=== PATIENT | female | born 2005 | race African-American/Black ===

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

== ENCOUNTER 2024-01-21 15:48 | Emergency (ER) | payer OTHER, BC ==
[~2024-01-21 15:48] MED LIST: LORazepam 2 MG/ML SDV ONE
[2024-01-21] MEDS ORDERED: LORazepam 2 MG/ML SDV IVPUSH PRN (15:51)
[2024-01-21] MEDS: Sodium Chloride 0.9% 1,000 ML IV ONE (15:56)
[2024-01-21] MEDS ORDERED: Sodium Chloride 0.9% 10 ML Syringe FLUSH PRN (15:57)
[2024-01-21 16:04] LABS: BASOPHILS ABSOLUTE AUTO 0.03 K/uL (0.00-0.30); BASOPHILS PERCENT AUTO 0.3 % (0.0-1.0); EOSINOPHILS ABSOLUTE AUTO 0.08 K/uL (0.00-0.70); EOSINOPHILS PERCENT AUTO 0.8 % (0.0-5.0); HEMATOCRIT 42.2 % (37.0-47.0); HEMOGLOBIN 14.2 g/dL (12.0-16.0); IMMATURE GRAN ABSOLUTE AUTO 0.03 K/uL (0.00-0.05); IMMATURE GRAN PERCENT AUTO 0.3 % (0.0-0.4); LYMPHOCYTES ABSOLUTE AUTO 1.85 K/uL (2.00-8.80); LYMPHOCYTES PERCENT AUTO 17.9 % (50.0-65.0); MEAN CORPUSCULAR HEMOGLOBIN 30.7 pg (28.0-32.0); MEAN CORPUSCULAR HGB CONC 33.6 g/dL (32.0-36.0); MEAN CORPUSCULAR VOLUME 91.1 fL (83.0-99.0); MONOCYTES ABSOLUTE AUTO 0.69 K/uL (0.10-1.40); MONOCYTES PERCENT AUTO 6.7 % (2.0-10.0); NEUTROPHILS ABSOLUTE AUTO 7.65 K/uL (1.50-8.50); PLATELET COUNT,PLT 305 K/uL (150-400); RED BLOOD CELL COUNT 4.63 M/uL (4.10-5.30); WHITE BLOOD CELL COUNT,WBC 10.33 K/uL (4.5-13.5)
[2024-01-21 16:31] LABS: INR 0.99 (0.86-1.11)
[2024-01-21 16:35] LABS: ALBUMIN 3.6 g/dL (3.4-5.0); BILIRUBIN TOTAL 0.2 mg/dL (0.2-1.0); CALCIUM 8.9 mg/dL (8.5-10.1); CARBON DIOXIDE,CO2 19.3 mmol/L (21.0-32.0); CREATININE 1.4 mg/dL (0.6-1.0); EST CRCL DRUG DOSING (CG) 58.16 mL/min; MAGNESIUM 1.5 mg/dL (1.8-2.4); POTASSIUM,K 3.5 mmol/L (3.5-5.1); PROTEIN TOTAL,TP 7.1 g/dL (6.4-8.2)
[2024-01-21] MEDS: Magnesium Sulfate/Water Premix 2 GM in Premix Bag 1 BAG IV ONE (16:59)
[2024-01-21 17:16] LABS: APPEARANCE,URINE CLOUDY; BILIRUBIN,URINE NEGATIVE (NEGATIVE); GLUCOSE,URINE NEGATIVE (NEGATIVE); KETONES,URINE NEGATIVE (NEGATIVE); LEUKOCYTE ESTERASE,URINE NEGATIVE (NEGATIVE); NITRITE,URINE NEGATIVE (NEGATIVE); OCCULT BLOOD,URINE LARGE (NEGATIVE); PROTEIN,URINE TRACE mg/dL (NEGATIVE); UROBILINOGEN,URINE 0.2 EU/dL (<2.0)
[2024-01-21 17:25] LABS: AMPHETAMINES SCREEN, URINE NEGATIVE (CUTOFF=500); BARBITURATE SCREEN,URINE NEGATIVE (CUTOFF=200); BENZODIAZEPINES SCREEN,URINE NEGATIVE (CUTOFF=150); BUPRENORPHINE SCREEN,URINE NEGATIVE (CUTOFF=10); METHADONE SCREEN, URINE NEGATIVE (CUTOFF=200); METHAMPHETAMINES SCREEN, URINE NEGATIVE (CUTOFF=500); OXYCODONE SCREEN,URINE NEGATIVE (CUT0FF=100); PCP SCREEN,URINE NEGATIVE (CUTOFF=25); THC SCREEN,URINE 20 NG/ML NEGATIVE (CUTOFF=50)
[2024-01-21 17:26] LABS: COLOR,URINE PINK
[2024-01-21 17:27] LABS: BACTERIA,URINE FEW (NEGATIVE); EPITHELIAL CELLS,URINE RARE (NONE-FEW); MUCUS,URINE LIGHT (NONE-MOD); RBC,URINE 50-75 (0-2/HPF); WBC,URINE 0-2 (0-5/HPF)
[2024-01-21] MEDS ORDERED: Furosemide 40 MG/4 ML VIAL IVPUSH ONE (17:45)
== END 2024-01-21 19:39 | disposition home or self-care (01) ==
LOC: MW.ED 15:48
DX: G40.409 Other generalized epilepsy and epileptic syndromes, not intractable, without status epilepticus (principal); S06.9X9A Unspecified intracranial injury with loss of consciousness of unspecified duration, initial encounter; E83.42 Hypomagnesemia; R79.89 Other specified abnormal findings of blood chemistry; Z79.899 Other long term (current) drug therapy; X58.XXXA Exposure to other specified factors, initial encounter
CPT/HCPCS: 36415; 70450; 80053; 80305; 81001; 83690; 83735; 84703; 85025; 85610; 93005; 96365; 96366; 96367; 99285; J1953; J2060; J3475; J7030; J7060; 93010; 99284

== ENCOUNTER 2024-02-08 08:53 | Emergency (ER) | payer BC, OTHER ==
[2024-02-08 09:06] LABS: BASOPHILS ABSOLUTE AUTO 0.03 K/uL (0.00-0.30); BASOPHILS PERCENT AUTO 0.4 % (0.0-1.0); EOSINOPHILS ABSOLUTE AUTO 0.12 K/uL (0.00-0.70); EOSINOPHILS PERCENT AUTO 1.5 % (0.0-5.0); HEMOGLOBIN 14.4 g/dL (12.0-16.0); IMMATURE GRAN ABSOLUTE AUTO 0.02 K/uL (0.00-0.05); IMMATURE GRAN PERCENT AUTO 0.2 % (0.0-0.4); LYMPHOCYTES ABSOLUTE AUTO 2.37 K/uL (2.00-8.80); LYMPHOCYTES PERCENT AUTO 28.8 % (50.0-65.0); MEAN CORPUSCULAR HEMOGLOBIN 30.9 pg (28.0-32.0); MEAN CORPUSCULAR HGB CONC 34.3 g/dL (32.0-36.0); MEAN CORPUSCULAR VOLUME 90.1 fL (83.0-99.0); MEAN PLATELET VOLUME 8.9 fL (9.4-12.3); MONOCYTES ABSOLUTE AUTO 0.71 K/uL (0.10-1.40); MONOCYTES PERCENT AUTO 8.6 % (2.0-10.0); NEUTROPHILS ABSOLUTE AUTO 4.99 K/uL (1.50-8.50); NEUTROPHILS PERCENT AUTO 60.5 % (35.0-45.0); PLATELET COUNT,PLT 293 K/uL (150-400); RED BLOOD CELL COUNT 4.66 M/uL (4.10-5.30); WHITE BLOOD CELL COUNT,WBC 8.24 K/uL (4.5-13.5)
[2024-02-08 09:32] LABS: A/G RATIO 1.1 (0.9-1.6); ALBUMIN 3.5 g/dL (3.4-5.0); BILIRUBIN TOTAL 0.4 mg/dL (0.2-1.0); CALCIUM 8.9 mg/dL (8.5-10.1); CARBON DIOXIDE,CO2 19.8 mmol/L (21.0-32.0); CREATININE 1.2 mg/dL (0.6-1.0); EST CRCL DRUG DOSING (CG) 67.85 mL/min; MAGNESIUM 1.5 mg/dL (1.8-2.4); POTASSIUM,K 3.7 mmol/L (3.5-5.1); PROTEIN TOTAL,TP 6.8 g/dL (6.4-8.2)
[2024-02-08] MEDS ORDERED: Magnesium Sulfate (4.06 MEQ/ML) 5 GM/10 ML SDV IV STA (10:03)
[2024-02-08] MEDS: Magnesium Sulfate/Water Premix 2 GM in Premix Bag 1 BAG IV ONE (10:15)
[2024-02-11 05:07] LABS: KEPPRA 49 ug/mL (10-40); TOPIRAMATE 8.3 ug/mL (5.0-20.0)
== END 2024-02-08 14:18 | disposition home or self-care (01) ==
LOC: MW.ED 08:53
DX: G40.909 Epilepsy, unspecified, not intractable, without status epilepticus (principal); Z79.899 Other long term (current) drug therapy
CPT/HCPCS: 36415; 80053; 80177; 80201; 82947; 83735; 85025; 93005; 96365; 99285; J3475

== ENCOUNTER 2024-03-02 10:22 | Emergency (ER) | payer BC ==
[2024-03-02] MEDS: Sodium Chloride 0.9% 1,000 ML IV ONE (11:02)
[2024-03-02 11:10] LABS: BASOPHILS ABSOLUTE AUTO 0.03 K/uL (0.00-0.30); BASOPHILS PERCENT AUTO 0.3 % (0.0-1.0); EOSINOPHILS ABSOLUTE AUTO 0.05 K/uL (0.00-0.70); EOSINOPHILS PERCENT AUTO 0.5 % (0.0-5.0); IMMATURE GRAN ABSOLUTE AUTO 0.03 K/uL (0.00-0.05); IMMATURE GRAN PERCENT AUTO 0.3 % (0.0-0.4); LYMPHOCYTES ABSOLUTE AUTO 1.07 K/uL (2.00-8.80); LYMPHOCYTES PERCENT AUTO 10.1 % (50.0-65.0); MEAN CORPUSCULAR HEMOGLOBIN 30.9 pg (28.0-32.0); MEAN CORPUSCULAR HGB CONC 34.1 g/dL (32.0-36.0); MEAN CORPUSCULAR VOLUME 90.5 fL (83.0-99.0); MEAN PLATELET VOLUME 8.6 fL (9.4-12.3); MONOCYTES PERCENT AUTO 5.7 % (2.0-10.0); NEUTROPHILS ABSOLUTE AUTO 8.81 K/uL (1.50-8.50); NEUTROPHILS PERCENT AUTO 83.1 % (35.0-45.0); PLATELET COUNT,PLT 317 K/uL (150-400); RED BLOOD CELL COUNT 4.53 M/uL (4.10-5.30); WHITE BLOOD CELL COUNT,WBC 10.59 K/uL (4.5-13.5)
[2024-03-02 12:05] LABS: ALANINE AMINOTRANSFERASE,ALT 15 IU/L (14-63); ALBUMIN 3.3 g/dL (3.4-5.0); ALKALINE PHOSPHATASE 61 U/L (46-116); ASPARTATE AMNIOTRANSFERASE,AST 12 IU/L (15-37); BILIRUBIN TOTAL 0.2 mg/dL (0.2-1.0); BLOOD UREA NITROGEN,BUN 7 mg/dL (7.0-18.0); CALCIUM 9.2 mg/dL (8.5-10.1); CHLORIDE,CL 109 mmol/L (98-107); CREATININE 1.2 mg/dL (0.6-1.0); GLUCOSE RANDOM 89 mg/dL (74-106); MAGNESIUM 1.6 mg/dL (1.8-2.4); POTASSIUM,K 3.8 mmol/L (3.5-5.1); PROTEIN TOTAL,TP 6.7 g/dL (6.4-8.2); SODIUM,NA 143 mmol/L (136-145)
[2024-03-02 12:12] LABS: ESTIMATED GFR 67 mL/min (>60)
[2024-03-02] MEDS: Magnesium Oxide 400 MG Tab PO ONE (14:33)
== END 2024-03-02 14:43 | disposition home or self-care (01) ==
LOC: MW.ED 10:22
DX: G40.909 Epilepsy, unspecified, not intractable, without status epilepticus (principal); Z79.899 Other long term (current) drug therapy; Z75.8 Other problems related to medical facilities and other health care
CPT/HCPCS: 36415; 70450; 80053; 83735; 85025; 93005; 96361; 96365; 99284; A9270; J1953; J7030; J7060; 93010; 99285

== ENCOUNTER 2024-06-02 10:38 | Emergency (ER) | payer BC ==
[2024-06-02] MEDS ORDERED: Sodium Chloride 0.9% 10 ML Syringe FLUSH PRN (10:43)
[2024-06-02 11:05] LABS: BASOPHILS ABSOLUTE AUTO 0.02 K/uL (0.00-0.30); BASOPHILS PERCENT AUTO 0.2 % (0.0-1.0); EOSINOPHILS ABSOLUTE AUTO 0.04 K/uL (0.00-0.70); EOSINOPHILS PERCENT AUTO 0.4 % (0.0-5.0); HEMATOCRIT 38.6 % (37.0-47.0); HEMOGLOBIN 13.1 g/dL (12.0-16.0); IMMATURE GRAN ABSOLUTE AUTO 0.02 K/uL (0.00-0.05); IMMATURE GRAN PERCENT AUTO 0.2 % (0.0-0.4); LYMPHOCYTES ABSOLUTE AUTO 1.62 K/uL (2.00-8.80); LYMPHOCYTES PERCENT AUTO 17.1 % (50.0-65.0); MEAN CORPUSCULAR HEMOGLOBIN 30.6 pg (28.0-32.0); MEAN CORPUSCULAR HGB CONC 33.9 g/dL (32.0-36.0); MEAN CORPUSCULAR VOLUME 90.2 fL (83.0-99.0); MEAN PLATELET VOLUME 8.9 fL (9.4-12.3); MONOCYTES ABSOLUTE AUTO 0.62 K/uL (0.10-1.40); MONOCYTES PERCENT AUTO 6.6 % (2.0-10.0); NEUTROPHILS ABSOLUTE AUTO 7.13 K/uL (1.50-8.50); NEUTROPHILS PERCENT AUTO 75.5 % (35.0-45.0); PLATELET COUNT,PLT 245 K/uL (150-400); RED BLOOD CELL COUNT 4.28 M/uL (4.10-5.30); WHITE BLOOD CELL COUNT,WBC 9.45 K/uL (4.5-13.5)
[2024-06-02 11:26] LABS: A/G RATIO 1.1 (0.9-1.6); ALBUMIN 3.4 g/dL (3.4-5.0); BILIRUBIN TOTAL 0.3 mg/dL (0.2-1.0); CALCIUM 8.7 mg/dL (8.5-10.1); CARBON DIOXIDE,CO2 19.4 mmol/L (21.0-32.0); CREATININE 1.1 mg/dL (0.6-1.0); EST CRCL DRUG DOSING (CG) 71.03 mL/min; MAGNESIUM 1.8 mg/dL (1.8-2.4); POTASSIUM,K 3.5 mmol/L (3.5-5.1); PROTEIN TOTAL,TP 6.6 g/dL (6.4-8.2)
[2024-06-02] MEDS: LORazepam 2 MG/ML SDV IVPUSH ONE ×5 (13:18→16:43)
[2024-06-02] MEDS: Sodium Chloride 0.9% 1,000 ML IV ONE (13:19)
[2024-06-02] MEDS: propofoL 1,000 MG/100 ML 100 ML IV SCH (14:40)
[2024-06-02 15:16] LABS: APPEARANCE,URINE CLEAR; BILIRUBIN,URINE NEGATIVE (NEGATIVE); COLOR,URINE YELLOW; GLUCOSE,URINE NEGATIVE (NEGATIVE); KETONES,URINE NEGATIVE (NEGATIVE); LEUKOCYTE ESTERASE,URINE NEGATIVE (NEGATIVE); NITRITE,URINE NEGATIVE (NEGATIVE); OCCULT BLOOD,URINE NEGATIVE (NEGATIVE); PROTEIN,URINE NEGATIVE (NEGATIVE); UROBILINOGEN,URINE 0.2 EU/dL (<2.0)
[2024-06-02] MEDS: Propofol 200 MG/20 ML SDV IVPUSH ONE ×3 (15:20→17:11)
[2024-06-02 15:32] LABS: BICARBONATE,ARTERIAL 17 mEq/L (22-26); PCO2 ARTERIAL 38 mmHG (35-45); PO2 ARTERIAL 210 mmHG (80-105)
[2024-06-02] MEDS: Succinylcholine 200 MG/10 ML MDV IV ONE (15:37)
[2024-06-02] MEDS: Etomidate 2 MG/ML 20 ML SDV IVPUSH ONE (15:37)
[2024-06-02] MEDS: fentaNYL/Normal Saline 2,500 MCG in Premix Bag 1 BAG IV PRN (15:42)
[2024-06-02] MEDS: Lactated Ringers 1,000 ML IV SCH (16:42)
[2024-06-02] MEDS: LORazepam 2 MG/ML SDV ONE ×3 (16:44)
[2024-06-02 16:50] LABS: AMPHETAMINES SCREEN, URINE NEGATIVE (CUTOFF=500); BARBITURATE SCREEN,URINE NEGATIVE (CUTOFF=200); BENZODIAZEPINES SCREEN,URINE PRESUMPTIVE POSITIVE (CUTOFF=150); BUPRENORPHINE SCREEN,URINE NEGATIVE (CUTOFF=10); METHADONE SCREEN, URINE NEGATIVE (CUTOFF=200); METHAMPHETAMINES SCREEN, URINE NEGATIVE (CUTOFF=500); OXYCODONE SCREEN,URINE NEGATIVE (CUT0FF=100); PCP SCREEN,URINE NEGATIVE (CUTOFF=25); THC SCREEN,URINE 20 NG/ML NEGATIVE (CUTOFF=50)
[2024-06-02 17:10] LABS: PH,VENOUS 7.27 (7.31-7.41)
[2024-06-02] MEDS: propofoL 1,000 MG/100 ML 100 ML ONE (17:13)
[2024-06-02] MEDS ORDERED: propofoL 1,000 MG/100 ML 100 ML IV SCH (18:20)
[2024-06-05 05:07] LABS: KEPPRA 39 ug/mL (10-40)
== END 2024-06-02 18:18 ==
LOC: MW.ED 10:38
DX: G40.901 Epilepsy, unspecified, not intractable, with status epilepticus (principal); E87.20 Acidosis, unspecified; E87.29 Other acidosis; Z79.899 Other long term (current) drug therapy
CPT/HCPCS: 31500; 36415; 36600; 51702; 70450; 71045; 80053; 80177; 80305; 81003; 81025; 82803; 83605; 83690; 83735; 85025; 93005; 96361; 96365; 96366; 96375; 96376; 99291; 99292; J0330; J1953; J2060; J2704; J3490; J7030; J7120; 93010

== ENCOUNTER 2024-07-26 12:04 | Emergency (ER) | payer BC ==
[2024-07-26] MEDS: Sodium Chloride 0.9% 1,000 ML IV ONE ×2 (12:44→15:00)
[2024-07-26] MEDS ORDERED: LORazepam 2 MG/ML SDV IVPUSH PRN (13:09)
[2024-07-26] MEDS: LORazepam 2 MG/ML SDV IM ONE (13:15)
[2024-07-26] MEDS: Midazolam 5 MG/ML SDV IM ONE (13:18)
[2024-07-26] MEDS: droPERidol 2.5 MG/ML SDV IM ONE (13:28)
[2024-07-26 14:29] LABS: BASOPHILS ABSOLUTE AUTO 0.02 K/uL (0.00-0.30); BASOPHILS PERCENT AUTO 0.2 % (0.0-1.0); EOSINOPHILS ABSOLUTE AUTO 0.06 K/uL (0.00-0.70); EOSINOPHILS PERCENT AUTO 0.7 % (0.0-5.0); HEMATOCRIT 38.8 % (37.0-47.0); HEMOGLOBIN 13.1 g/dL (12.0-16.0); IMMATURE GRAN ABSOLUTE AUTO 0.02 K/uL (0.00-0.05); IMMATURE GRAN PERCENT AUTO 0.2 % (0.0-0.4); LYMPHOCYTES ABSOLUTE AUTO 1.77 K/uL (2.00-8.80); LYMPHOCYTES PERCENT AUTO 19.2 % (50.0-65.0); MEAN CORPUSCULAR HEMOGLOBIN 30.5 pg (28.0-32.0); MEAN CORPUSCULAR HGB CONC 33.8 g/dL (32.0-36.0); MEAN CORPUSCULAR VOLUME 90.4 fL (83.0-99.0); MEAN PLATELET VOLUME 8.9 fL (9.4-12.3); MONOCYTES ABSOLUTE AUTO 0.59 K/uL (0.10-1.40); MONOCYTES PERCENT AUTO 6.4 % (2.0-10.0); NEUTROPHILS ABSOLUTE AUTO 6.74 K/uL (1.50-8.50); NEUTROPHILS PERCENT AUTO 73.3 % (35.0-45.0); PLATELET COUNT,PLT 300 K/uL (150-400); RED BLOOD CELL COUNT 4.29 M/uL (4.10-5.30)
[2024-07-26] MEDS: LORazepam 2 MG/ML SDV ONE (14:44)
[2024-07-26 14:50] LABS: BASE EXCESS VENOUS -2.3 (-2.0-3.0); PH,VENOUS 7.38 (7.32-7.43)
[2024-07-26 15:09] LABS: A/G RATIO 1.1 (0.9-1.6); ALANINE AMINOTRANSFERASE,ALT 9 IU/L (14-63); ALBUMIN 3.3 g/dL (3.4-5.0); ALKALINE PHOSPHATASE 61 U/L (46-116); ASPARTATE AMNIOTRANSFERASE,AST 8 IU/L (15-37); BILIRUBIN TOTAL 0.4 mg/dL (0.2-1.0); BLOOD UREA NITROGEN,BUN 10 mg/dL (7.0-18.0); CALCIUM 8.6 mg/dL (8.5-10.1); CARBON DIOXIDE,CO2 20.6 mmol/L (21.0-32.0); CHLORIDE,CL 110 mmol/L (98-107); GLUCOSE RANDOM 90 mg/dL (74-106); MAGNESIUM 1.8 mg/dL (1.8-2.4); POTASSIUM,K 3.6 mmol/L (3.5-5.1); PROTEIN TOTAL,TP 6.3 g/dL (6.4-8.2); SODIUM,NA 142 mmol/L (136-145)
[2024-07-26 15:11] LABS: ESTIMATED GFR 83 mL/min (>60)
[2024-07-26] MEDS: Sodium Chloride 0.9% 1,000 ML IV SCH (17:52)
[2024-07-26] MEDS ORDERED: Topiramate 100 MG Tab PO SCH (21:00)
== END 2024-07-26 21:01 | disposition home or self-care (01) ==
LOC: MW.ED 12:04
DX: G40.909 Epilepsy, unspecified, not intractable, without status epilepticus (principal); Z79.899 Other long term (current) drug therapy
CPT/HCPCS: 36415; 80053; 82803; 83605; 83735; 84703; 85025; 96372; 96374; 99284; J1790; J1953; J2060; J2250; J7030; 93010

== ENCOUNTER 2024-08-07 13:34 | Emergency (ER) | payer BC ==
[2024-08-07] MEDS: droPERidol 2.5 MG/ML SDV IVPUSH ONE (13:52)
[2024-08-07] MEDS: Sodium Chloride 0.9% 1,000 ML IV ONE (14:02)
[2024-08-07 14:17] LABS: BASOPHILS ABSOLUTE AUTO 0.03 K/uL (0.00-0.30); BASOPHILS PERCENT AUTO 0.4 % (0.0-1.0); EOSINOPHILS ABSOLUTE AUTO 0.06 K/uL (0.00-0.70); EOSINOPHILS PERCENT AUTO 0.7 % (0.0-5.0); HEMATOCRIT 38.5 % (37.0-47.0); IMMATURE GRAN ABSOLUTE AUTO 0.01 K/uL (0.00-0.05); IMMATURE GRAN PERCENT AUTO 0.1 % (0.0-0.4); LYMPHOCYTES ABSOLUTE AUTO 2.04 K/uL (2.00-8.80); LYMPHOCYTES PERCENT AUTO 24.1 % (50.0-65.0); MEAN CORPUSCULAR HEMOGLOBIN 30.8 pg (28.0-32.0); MEAN CORPUSCULAR HGB CONC 33.8 g/dL (32.0-36.0); MEAN CORPUSCULAR VOLUME 91.2 fL (83.0-99.0); MEAN PLATELET VOLUME 9.1 fL (9.4-12.3); MONOCYTES ABSOLUTE AUTO 0.62 K/uL (0.10-1.40); MONOCYTES PERCENT AUTO 7.3 % (2.0-10.0); NEUTROPHILS PERCENT AUTO 67.4 % (35.0-45.0); PLATELET COUNT,PLT 278 K/uL (150-400); RED BLOOD CELL COUNT 4.22 M/uL (4.10-5.30); WHITE BLOOD CELL COUNT,WBC 8.46 K/uL (4.5-13.5)
[2024-08-08 02:27] LABS: ALANINE AMINOTRANSFERASE,ALT 15 IU/L (14-63); ALKALINE PHOSPHATASE 55 U/L (46-116); ASPARTATE AMNIOTRANSFERASE,AST 23 IU/L (15-37); BILIRUBIN TOTAL 0.4 mg/dL (0.2-1.0); BLOOD UREA NITROGEN,BUN 9 mg/dL (7.0-18.0); CALCIUM 8.9 mg/dL (8.5-10.1); CARBON DIOXIDE,CO2 11.3 mmol/L (21.0-32.0); CHLORIDE,CL 107 mmol/L (98-107); CREATINE KINASE,CK 78 U/L (26-308); CREATININE 1.1 mg/dL (0.6-1.0); ETHANOL BLOOD MEDICAL <3 mg/dL; GLUCOSE RANDOM 94 mg/dL (74-106); POTASSIUM,K 3.8 mmol/L (3.5-5.1); PROTEIN TOTAL,TP 6.6 g/dL (6.4-8.2); SALICYLATE 0.3 mg/dL (0.0-20.0); SODIUM,NA 138 mmol/L (136-145); TSH ULTRASENSITIVE 1.28 uIU/mL (0.36-3.74)
[2024-08-08 02:29] LABS: ESTIMATED GFR 74 mL/min (>60)
[2024-08-08 05:50] LABS: A/G RATIO 1.1 (0.9-1.6); ACETAMINOPHEN <2.0 ug/mL; ALBUMIN 3.5 g/dL (3.4-5.0)
== END 2024-08-07 20:49 | disposition home or self-care (01) ==
LOC: MW.ED 13:34
DX: G40.909 Epilepsy, unspecified, not intractable, without status epilepticus (principal); Z79.899 Other long term (current) drug therapy
CPT/HCPCS: 36415; 80048; 80076; 80143; 80179; 80307; 82550; 83605; 84443; 84703; 85025; 93005; 96361; 96365; 96375; 99284; J1790; J1953; J7030; 93010